=== PATIENT | female | born 1995 | race Hispanic/Latino ===

== ENCOUNTER 2019-06-18 21:05 | Emergency (ER) | payer OTHER, SELFPAY ==
[2019-06-18 21:42] LABS: APPEARANCE,URINE Cloudy (CLEAR); BILIRUBIN,URINE Negative (NEGATIVE); COLOR,URINE Dark Yellow (YELLOW); GLUCOSE, URINE (UA) Negative (NEGATIVE); KETONES,URINE Negative (NEGATIVE); LEUKOCYTE ESTERASE ,URINE Large (NEGATIVE); NITRATE,URINE Positive (NEGATIVE); OCCULT BLOOD,URINE Large (NEGATIVE); PH,URINE 6.5 (5.0-8.0); PROTEIN,URINE POS 2+ mg/dL (NEGATIVE)
[2019-06-18 21:44] LABS: HCG,QUAL RESULT NEGATIVE (NEGATIVE)
[2019-06-18 21:57] LABS: BACTERIA,URINE Few /HPF (None Seen); RBC,URINE TNTC /HPF (0-1); WBC,URINE 26-50 /HPF (0-1)
[2019-06-18] MEDS ORDERED: LIDOCAINE HCL-MPF 1% 2ML VIAL ONE (22:20)
[2019-06-18] MEDS ORDERED: CEFTRIAXONE SODIUM 1 GM ONE (22:21)
== END 2019-06-18 22:31 | disposition home or self-care (01) ==
LOC: EDH 21:05
DX: N39.0 Urinary tract infection, site not specified (principal); Z88.8 Allergy status to other drugs, medicaments and biological substances
CPT/HCPCS: 81001; 81025; 96372; 99283; J0696; J3490